=== PATIENT | female | born 1970 ===

== ENCOUNTER 2017-03-12 10:05 | Emergency (ER) | payer MEDICAID ==
[2017-03-12 10:05] VITALS: BMI 31.1
[2017-03-12 10:33] VITALS: BP 142/84; PULSE 83; RESP 18; TEMP 97; O2SAT 100
--- NOTE | 2017-03-12 11:04 | ED PDOC ---
HPI: General Adult Time Seen by Provider: 03/12/17 11:04 Chief Complaint (Nursing): Abdominal Pain Chief Complaint (Provider): vaginal bleeding History Per: Patient Additional Complaint(s): 47-year-old female presents to emergency department with lower abdominal pain and abnormal vaginal bleeding ongoing since February 13. Patient states her menses are becoming more irregular. She denies any dysuria or vaginal discharge. No nausea, vomiting or diarrhea. Patient has not taken anything for pain. Past Medical History Reviewed: Historical Data, Nursing Documentation, Vital Signs Vital Signs: Last Vital Signs Temp 97 F L 03/12/17 10:29 Pulse 83 03/12/17 10:29 Resp 18 03/12/17 10:29 BP 142/84 03/12/17 10:29 Pulse Ox 100 03/12/17 14:25 - Medical History PMH: Anemia - Surgical History Other surgeries: tubal ligation - Family History Family History: States: No Known Family Hx - Living Arrangements Living Arrangements: With Family - Social History Current smoker - smoking cessation education provided: No Alcohol: None Drugs: Denies - Home Medications Home Medications: Ambulatory Orders Medication Instructions Recorded Ibuprofen [Motrin] 600 mg PO Q6 PRN #15 tab 03/12/17 Nitrofurantoin Macrocrystals 100 mg PO BID #14 tab 03/12/17 [Macrobid] - Allergies Allergies/Adverse Reactions: Allergies Allergy/AdvReac Type Severity Reaction Status Date / Time No Known Allergies Allergy Verified 02/02/15 10:51 Review of Systems ROS Statement: Except As Marked, All Systems Reviewed And Found Negative Constitutional: Negative for: Fever Respiratory: Negative for: Cough Gastrointestinal: Negative for: Nausea, Vomiting Genitourinary Female: Positive for: Vaginal Bleeding, Pelvic Pain. Negative for : Dysuria, Frequency, Incontinence, Hematuria, Vaginal Discharge Physical Exam - Reviewed Nursing Documentation Reviewed: Yes Vital Signs Reviewed: Yes - Physical Exam Appears: Positive for: Well, Non-toxic, No Acute Distress Skin: Negative for: Rash Eye Exam: Positive for: Normal appearance Cardiovascular/Chest: Positive for: Regular Rate, Rhythm Respiratory: Positive for: Normal Breath Sounds Gastrointestinal/Abdominal: Positive for: Tenderness (Mild suprapubic tenderness to palpation, no rebound or guarding, no distention, normoactive bowel sounds in all 4 quadrants) Back: Negative for: L CVA Tenderness, R CVA Tenderness Extremity: Positive for: Normal ROM Neurologic/Psych: Positive for: Alert, Oriented - Laboratory Results Result Diagrams: 03/12/17 11:45 03/12/17 11:45 Urine POC: Negative Urine dip results: Positive for: Leukocyte Esterase (small), Blood (large). Negative for: Nitrate, Ketones, Glucose, Bilirubin, Protein - ECG O2 Sat by Pulse Oximetry: 100 Pulse Ox Interpretation: Normal - Other Rad TV US X-Ray: Read By Radiologist X-Ray Interpretation: see below Medical Decision Making Medical Decision Makin47 year old with vaginal bleeding test is negative Plan: UA CBC CMP PT/PTT TV US IVF PO motrin and tylenol 12:56 pm: UTI is noted, 1 g IV Rocephin ordered, ultrasound still pending. US: IMPRESSION: Unremarkable uterus and endometrium. The ovaries could not be visualized due to extensive bowel gas in the pelvis. Small amount of free fluid in cul-de-sac incidentally noted. Patient is aware of all diagnostic testing results, all questions answered. Prescriptions provided for Macrobid and Motrin. Advised fluids, rest and follow- up with women's clinic. Disposition - Clinical Impression Clinical Impression: Urinary tract infection, Vaginal bleeding - Patient ED Disposition Is Patient to be Admitted: No Counseled Patient/Family Regarding: Studies Performed, Diagnosis, Need For Followup, Rx Given - Disposition Referrals: [facility] [Outside] Disposition: Routine/Home Disposition Time: 14:21 Condition: STABLE Additional Instructions: Take prescription medications as directed. Drink plenty of fluids and get plenty of rest. Follow-up in one to 2 days with women's clinic. Prescriptions: Ibuprofen [Motrin] 600 mg PO Q6 PRN #15 tab PRN Reason: Pain, Moderate (4-7) Nitrofurantoin Macrocrystals [Macrobid] 100 mg PO BID #14 tab Instructions: Dysfunctional Uterine Bleeding (ED), Urinary Tract Infection in Women (ED) Forms: [employer] (Occitan) Print Language: [place]ET[place]ESE Results - Lab Results Lab Results: 03/12/17 03/12/17 03/12/17 11:45 11:45 11:45 WBC RBC Hgb Hct MCV MCH MCHC RDW Plt Count MPV Neut % (Auto) Lymph % (Auto) [place] % (Auto) Eos % (Auto) Baso % (Auto) Neut # Lymph # [place] # Eos # Baso # PT 11.5 INR 1.0 APTT 29.8 Sodium 140 Potassium 3.7 Chloride 105 Carbon Dioxide 24 Anion Gap 15 BUN 14 Creatinine 0.6 L Est GFR ( Amer) > 60 Est GFR (Non-Af Amer) > 60 Random Glucose 94 Calcium 8.8 Total Bilirubin 0.3 AST 22 ALT 37 Alkaline Phosphatase 56 Total Protein 7.4 Albumin 3.9 Globulin 3.5 Albumin/Globulin Ratio 1.1 Urine Color Yellow Urine Clarity Cloudy Urine pH 6.0 Ur Specific [place] 1.013 Urine Protein 30 Urine Glucose (UA) Neg Urine Ketones Negative Urine Blood Large Urine Nitrate Negative Urine Bilirubin Negative Urine Urobilinogen 0.2-1.0 Ur Leukocyte Esterase Mod Urine RBC (Auto) 1102 H Urine Microscopic WBC 94 H Ur Squamous Epith Cells 2 Urine Bacteria Rare 03/12/17 11:45 WBC 4.3 L RBC 3.55 L Hgb 9.7 L Hct 29.2 L MCV 82.3 MCH 27.4 MCHC 33.3 RDW 14.1 Plt Count 219 MPV 8.1 Neut % (Auto) 62.2 Lymph % (Auto) 26.0 [place] % (Auto) 8.3 Eos % (Auto) 2.4 Baso % (Auto) 1.1 Neut # 2.7 Lymph # 1.1 [place] # 0.4 Eos # 0.1 Baso # 0.0 PT INR APTT Sodium Potassium Chloride Carbon Dioxide Anion Gap BUN Creatinine Est GFR ( Amer) Est GFR (Non-Af Amer) Random Glucose Calcium Total Bilirubin AST ALT Alkaline Phosphatase Total Protein Albumin Globulin Albumin/Globulin Ratio Urine Color Urine Clarity Urine pH Ur Specific [place] Urine Protein Urine Glucose (UA) Urine Ketones Urine Blood Urine Nitrate Urine Bilirubin Urine Urobilinogen Ur Leukocyte Esterase Urine RBC (Auto) Urine Microscopic WBC Ur Squamous Epith Cells Urine Bacteria
[2017-03-12] MEDS ORDERED: Sodium Chloride 0.9% 1,000 ML IV STA (11:22)
[2017-03-12 11:55] LABS: BASO % 1.1 % (0.0-2.0); EOS # 0.1 K/uL (0.0-0.7); EOS % 2.4 % (0.0-4.0); HEMOGLOBIN 9.7 g/dL (12.0-16.0); LYMPH # 1.1 K/uL (1.0-4.3); MEAN CELL VOLUME 82.3 fl (81.0-99.0); MEAN CORPUSCULAR HEMOGLOBIN 27.4 pg (27.0-31.0); MEAN CORPUSCULAR HGB CONC 33.3 g/dL (33.0-37.0); MEAN PLATELET VOLUME 8.1 fl (7.2-11.7); MONO # 0.4 K/uL (0.0-0.8); MONO % 8.3 % (0.0-10.0); NEUT # 2.7 K/uL (1.8-7.0); NEUT % 62.2 % (50.0-75.0); NRBC % 0.3 % (0.0-0.0); RBC 3.55 Mil/uL (3.80-5.20); RED CELL DISTRIBUTION WIDTH 14.1 % (11.5-14.5); WHITE BLOOD COUNT 4.3 K/uL (4.8-10.8)
[2017-03-12 12:06] LABS: ALB/GLOB RATIO 1.1 (1.0-2.1); ALBUMIN 3.9 g/dL (3.5-5.0); ALT/SGPT 37 U/L (9-52); AST/SGOT 22 U/L (14-36); BLOOD UREA NITROGEN 14 mg/dl (7-17); CALCIUM 8.8 mg/dL (8.4-10.2); GFR AFRICAN-AMERICAN > 60; GFR NON-AFRICAN AMERICAN > 60
[2017-03-12 12:08] LABS: SQUAMOUS EPITHIAL 2 /hpf (0-5); URINE BACTERIA RARE (<OCC); URINE BILIRUBIN NEGATIVE (NEGATIVE); URINE BLOOD LARGE (NEGATIVE); URINE CLARITY CLOUDY (Clear); URINE COLOR YELLOW (YELLOW); URINE GLUCOSE (UA) NEG (Normal); URINE LEUKOCYTE ESTERASE MOD Leu/uL (Negative); URINE NITRATE NEGATIVE (NEGATIVE); URINE PROTEIN 30 mg/dL (NEGATIVE); URINE UROBILINOGEN 0.2-1.0 mg/dL (0.2-1.0)
[2017-03-12 12:18] LABS: PARTIAL THROMBOPLASTIN TIME 29.8 Seconds (25.6-37.1); PROTHROMBIN TIME 11.5 Seconds (9.8-13.1)
--- NOTE | 2017-03-12 14:04 | US ---
HISTORY: pelvic pain, vaginal bleeding COMPARISON: None available. TECHNIQUE: Transvaginal FINDINGS: UTERUS: Measures 8.6 x 5.4 x 6.2 cm. Normal in size and appearance. No fibroid or other mass lesion seen. ENDOMETRIUM: Measures 9 mm in diameter. Unremarkable. CERVIX: No cervical abnormality identified. RIGHT OVARY: Not visualized LEFT OVARY: Not visualized FREE FLUID: Small amount of free fluid in cul-de-sac OTHER FINDINGS: None. IMPRESSION: Unremarkable uterus and endometrium. The ovaries could not be visualized due to extensive bowel gas in the pelvis. Small amount of free fluid in cul-de-sac incidentally noted.
== END 2017-03-12 14:58 | disposition home or self-care (01) ==
LOC: H.ER 10:05
DX: N39.0 Urinary tract infection, site not specified (principal); N93.9 Abnormal uterine and vaginal bleeding, unspecified
CPT/HCPCS: 76830; 80053; 81003; 81025; 85025; 85610; 85730; 87086; 99283; J7040